=== PATIENT | female | born 1995 | race Asian ===

== ENCOUNTER 2024-03-25 09:31 | Observation (INO) ==
--- NOTE | 2023-05-29 08:29 | Anesthesiology Consultation ---
Date of Service May 29, 2023 Assessment & Plan (1) Encounter for pre-operative examination: Chart Review Chart Review: Pending: Refer to Additional Notes / Consult section (pending surgeon ordered PCP clearance ) and Patient NOT seen in Pre Admission Testing - Awaiting PCP clearance per surgeon request (05/29/23 workload note) Patient uses he/him/his pronouns - Check test AM DOS -Infectious Disease screening: Per PAT nursing assessment on 05/22/23. No known infectious disease contacts in past 10 days or current infectious disease symptoms. No recent travel outside the country. BP [facility] Nurse Visit 05/29/23= BP 118/90 History Surgery Operation Date: 06/05/23 10:50 Proposed Procedures p Bilateral Mastectomy with Free Nipple Grafting and Suction Assisted Lipectomy of the Lateral Chest - Dianna River MD Height/Weight Height: 4 ft 9 in Weight: 63.503 kg Allergies Allergy/AdvReac Type Severity Reaction Status Date / Time No Known Allergies Allergy Verified 09/29/22 13:41 Medications Home Medications Medication Instructions Recorded Confirmed Last Taken testosterone cypionate 200 mg/mL 200 mg subcut Q7D 09/29/22 05/22/23 Unknown intramuscular oil rosuvastatin 20 mg tablet 20 mg PO QAM 05/22/23 05/22/23 Unknown cephalexin 500 mg capsule 500 mg PO TID 1 week #21 caps 05/24/23 05/24/23 Unknown oxycodone-acetaminophen 5 mg-325 1 tab PO Q4H PRN pain #18 tabs 05/24/23 05/24/23 Unknown mg tablet (Endocet) Past Medical History Medical History (Updated 05/29/23 @ 09:21 by Kassandra Courtney PA-C) Dyslipidemia Gender dysphoria in adult Hypertension BP elevated at surgeon visit 05/23/23- requesting PCP approval prior to surgery Past Family History Family History Other Alzheimer disease Diabetes Dyslipidemia Hypertension No family history of adverse response to anesthesia Past Surgical History Surgical History Hx of tooth extraction Social History Smoking Status: Never smoker Do You Dip or Chew Tobacco: No Hx Alcohol Use: Yes (once per month) alcohol intake frequency: other Hx Substance Use: No substance use type: does not use Lab Results Anesthesia Preop Results Results Anesthesia Widget: WBC 6.85 K/ul (4.8-10.8) 05/27/23 Hgb 18.3 g/dl (12.0-16.0) H 05/27/23 Hct 50.7 % (37.0-47.0) H 05/27/23 Plt 199 K/uL (130-400) 05/27/23 Na 137 mmol/L (136-145) 05/27/23 K 4.3 mmol/L (3.5-5.1) 05/27/23 Cl 102 mmol/L (98-107) 05/27/23 CO2 31 mmol/L (21-32) 05/27/23 BUN 17 mg/dl (6-23) 05/27/23 Creat 0.91 mg/dl (0.6-1.2) 05/27/23 Glucose Level 102 mg/dl (70-99(Fasting)) H 05/27/23 PT 10.1 Seconds (9.0-12.0) 05/27/23 INR 0.9 (0.9-1.1) 05/27/23 Testing Laboratory Results Polycythemia - chronic since at least 2022 (Hgb 17.6 and Hct 50.2 on 05/2022 labs) Electrocardiogram Date: 05/27/23 Findings: + NSR @ (85bpm) Incomplete RBBB
--- NOTE | 2023-11-21 09:54 | Anesthesiology Consultation ---
Date of Service November 21, 2023 Assessment & Plan (1) Encounter for pre-operative examination: Chart Review Chart Review: Acceptable Risk for Surgery and Patient NOT seen in Pre Admission Testing Patient uses he/him/his pronouns - Check test AM DOS -Infectious Disease screening: Per PAT nursing assessment on 11/21/23. No known infectious disease contacts in past 10 days or current infectious disease symptoms. No recent travel outside the country. Per PCP letter 08/01/23= "Lam Ly is cleared for surgery. BP was 122/74 on 07/18/23 and 138/88 on 08/01/23." History Surgery Operation Date: 06/05/23 10:50 Proposed Procedures p Bilateral Mastectomy with Free Nipple Grafting and Suction Assisted Lipectomy of the Lateral Chest - Dianna River MD Operation Date: 11/29/23 07:30 Proposed Procedures p Bilateral Mastectomy with Free Nipple Grafting and Suction Assisted Lipectomy of Chest - Dianna River MD Height/Weight Height: 4 ft 9 in Weight: 68.039 kg Allergies Allergy/AdvReac Type Severity Reaction Status Date / Time No Known Allergies Allergy Verified 11/21/23 08:32 Medications Home Medications Medication Instructions Recorded Confirmed Last Taken testosterone cypionate 200 mg/mL 200 mg subcut Q7D 09/29/22 11/21/23 Unknown intramuscular oil rosuvastatin 20 mg tablet 20 mg PO QAM 05/22/23 11/21/23 Unknown cephalexin 500 mg capsule 500 mg PO TID 1 week #21 caps 05/24/23 11/21/23 Unknown oxycodone-acetaminophen 5 mg-325 1 tab PO Q4H PRN pain #18 tabs 05/24/23 11/21/23 Unknown mg tablet (Endocet) Past Medical History Medical History (Updated 11/21/23 @ 09:53 by Kassandra Courtney PA-C) Dyslipidemia Gender dysphoria in adult History of hypertension pt. reports "white coat" seen by Dr Verdin (PCP) 07/2023 - BP stable History of prediabetes Per PCP records- A1C now WNL (5.6) Past Family History Family History Other Alzheimer disease Diabetes Dyslipidemia Hypertension No family history of adverse response to anesthesia Past Surgical History Surgical History Hx of tooth extraction Social History Smoking Status: Never smoker Do You Dip or Chew Tobacco: No Hx Alcohol Use: Yes alcohol intake frequency: a few times a week Hx Substance Use: No substance use type: does not use Lab Results Anesthesia Preop Results Results Anesthesia Widget: WBC 6.90 K/ul (4.8-10.8) 11/08/23 Hgb 18.0 g/dl (12.0-16.0) H 11/08/23 Hct 51.5 % (37.0-47.0) H 11/08/23 Plt 202 K/uL (130-400) 11/08/23 Na 136 mmol/L (136-145) 11/08/23 K 3.9 mmol/L (3.5-5.1) 11/08/23 Cl 99 mmol/L (98-107) 11/08/23 CO2 30 mmol/L (21-32) 11/08/23 BUN 20 mg/dl (6-23) 11/08/23 Creat 0.91 mg/dl (0.6-1.2) 11/08/23 Glucose Level 88 mg/dl (70-99(Fasting)) 11/08/23 PT 10.1 Seconds (9.0-12.0) 11/08/23 INR 0.9 (0.9-1.1) 11/08/23 Testing Laboratory Results Polycythemia - chronic/stable from previous Electrocardiogram Date: 05/27/23 Findings: + NSR @ (85bpm) Incomplete RBBB
--- NOTE | 2024-03-13 10:16 | Anesthesiology Consultation ---
Date of Service March 13, 2024 Assessment & Plan (1) Encounter for pre-operative examination: Chart Review Chart Review: Acceptable Risk for Surgery (pending anesthesia evaluation DOS ) and Patient NOT seen in Pre Admission Testing Patient uses he/him/his pronouns - Check test AM DOS Per surgeon office visit 03/04/24 in re: to HTN= BP continues to run high in office. Patient states home BPs and BPs at previous PCP office visits improved/WNL. Surgeon's PA-C did warn patient he may be cancelled DOS if BP too high preoperatively- patient voices understanding. -Infectious Disease screening: Per PAT nursing assessment on 03/13/24. No known infectious disease contacts in past 10 days or current infectious disease symptoms. No recent travel outside the country. Per PCP letter 08/01/23= "Lam Ly is cleared for surgery. BP was 122/74 on 07/18/23 and 138/88 on 08/01/23." History Surgery Operation Date: 06/05/23 10:50 Proposed Procedures p Bilateral Mastectomy with Free Nipple Grafting and Suction Assisted Lipectomy of the Lateral Chest - Dianna River MD Operation Date: 03/25/24 11:30 Proposed Procedures p Bilateral Mastectomy with Free Nipple Grafting and Suction Assisted Lipectomy of Chest - Dianna River MD Height/Weight Height: 4 ft 9 in Weight: 68.039 kg Allergies Allergy/AdvReac Type Severity Reaction Status Date / Time No Known Allergies Allergy Verified 03/13/24 09:42 Medications Home Medications Medication Instructions Recorded Confirmed Last Taken testosterone cypionate 200 mg/mL 200 mg subcut Q7D 09/29/22 03/13/24 Unknown intramuscular oil rosuvastatin 20 mg tablet 20 mg PO QAM 05/22/23 03/13/24 Unknown cephalexin 500 mg capsule 500 mg PO TID 1 week #21 caps 05/24/23 03/13/24 Unknown oxycodone-acetaminophen 5 mg-325 1 tab PO Q4H PRN pain #18 tabs 05/24/23 03/13/24 Unknown mg tablet (Endocet) oxycodone-acetaminophen 5 mg-325 1 tab PO Q4H PRN pain #14 tabs 03/04/24 03/04/24 Unknown mg tablet (Endocet) Past Medical History Medical History Dyslipidemia Gender dysphoria in adult History of hypertension pt. reports "white coat" seen by Dr Verdin (PCP) 07/2023 - BP stable History of prediabetes Per PCP records- A1C now WNL (5.6) Past Family History Family History Other Alzheimer disease Diabetes Dyslipidemia Hypertension No family history of adverse response to anesthesia Past Surgical History Surgical History Hx of tooth extraction Social History Smoking Status: Never smoker Do You Dip or Chew Tobacco: No Hx Alcohol Use: Yes alcohol intake frequency: a few times a week Hx Substance Use: No substance use type: does not use Lab Results Anesthesia Preop Results Results Anesthesia Widget: WBC 7.27 K/ul (4.8-10.8) 03/04/24 Hgb 17.5 g/dl (12.0-16.0) H 03/04/24 Hct 47.8 % (37.0-47.0) H 03/04/24 Plt 203 K/uL (130-400) 03/04/24 Na 138 mmol/L (136-145) 03/04/24 K 3.8 mmol/L (3.5-5.1) 03/04/24 Cl 103 mmol/L (98-107) 03/04/24 CO2 29 mmol/L (21-32) 03/04/24 BUN 14 mg/dl (6-23) 03/04/24 Creat 0.93 mg/dl (0.6-1.2) 03/04/24 Glucose Level 114 mg/dl (70-99(Fasting)) H 03/04/24 PT 10.2 Seconds (9.0-12.0) 03/04/24 INR 0.9 (0.9-1.1) 03/04/24 Testing Laboratory Results Polycythemia - chronic/stable from previous Electrocardiogram Date: 05/27/23 Findings: + NSR @ (85bpm) Incomplete RBBB
[~2024-03-25 09:31] MED LIST: LR 15ML/HR IV SCH; TRANEXAMIC ACID / 0.7% NACL 1,000 MG/100 ML BAG IV SCH; ceFAZolin 2000MG 2,000 MG/15 ML SYR IV SCH
[2024-03-25] MEDS ORDERED: LIDOCAINE 2% 2 ML VIAL/AMP(20MG/ML) INFIL ONE ×2 (10:03)
[2024-03-25] MEDS ORDERED: PROPOFOL IV EMULSION 10 MG/ML 20 ML VIAL IV ONE (10:04)
[2024-03-25] MEDS ORDERED: ROCURONIUM BROMIDE 10 MG/ML 5 ML VIAL IV ONE (10:05)
[2024-03-25] MEDS: LR 15ML/HR IV SCH (10:24)
[2024-03-25] MEDS ORDERED: MIDAZOLAM HCL 1 MG/ML 2ML VIAL ONE (10:31)
[2024-03-25] MEDS ORDERED: fentaNYL citrate PF 100 MCG/2 ML VIAL ONE (10:31)
--- NOTE | 2024-03-25 10:36 | History & Physical Bridge Note ---
Date of Service March 25, 2024 History & Physical Bridge Note I have examined the patient, reviewed the History & Physical and in the interval since the performance of the History & Physical I have noted the following changes of clinical significance: no changes noted
[2024-03-25] MEDS ORDERED: fentaNYL citrate PF 100 MCG/2 ML VIAL IV PRN (10:57)
[2024-03-25] MEDS ORDERED: MEPERIDINE HCL 25 MG/ML CARP/VIAL IV PRN (10:57)
[2024-03-25] MEDS ORDERED: ATROPINE SULFATE 0.1 MG/ML 10ML SYR IV PRN (10:57)
[2024-03-25] MEDS ORDERED: ONDANSETRON INJ 2 MG/ML 2 ML VIAL IV PRN ×2 (10:57→16:14)
[2024-03-25] MEDS ORDERED: PROMETHAZINE HCL 6.25 MG in SODIUM CHLORIDE 0.9% 50 ML IV PRN (10:57)
[2024-03-25] MEDS: ceFAZolin 2000MG 2,000 MG/15 ML SYR IV SCH ×2 (11:15→18:10)
[2024-03-25] MEDS: TRANEXAMIC ACID 1,000 MG **IV Pre-op IV SCH (11:15)
[2024-03-25] MEDS ORDERED: LABETALOL HCL IV 5 MG/ML 20ML IV ONE (11:37)
[2024-03-25] MEDS ORDERED: ONDANSETRON INJ 2 MG/ML 2 ML VIAL ONE (11:37)
[2024-03-25] MEDS ORDERED: HYDROmorphone INJ 1 MG/ML SYRINGE ONE ×2 (11:44→12:51)
[2024-03-25] MEDS ORDERED: KETAMINE HCL 10MG/ML SYR ONE (11:44)
[2024-03-25] MEDS: BUPIVACAINE 0.25% PF 30 ML VIAL ONE (12:22)
[2024-03-25] MEDS: LIDOCAINE 1%/EPINEPHRINE 1:100,000 50 ML VIAL ONE (12:22)
[2024-03-25] MEDS ORDERED: PHENYLEPHRINE HCL 10 MG/ML VIAL ONE (12:41)
[2024-03-25] MEDS: TRANEXAMIC ACID 1,000 MG **IV Intra-op IV SCH (13:44)
[2024-03-25] MEDS ORDERED: SUGAMMADEX SODIUM 200 MG/2 ML VIAL IV ONE (14:13)
--- NOTE | 2024-03-25 14:27 | Post Operative Brief Note ---
PG Immediate Post Op with CF Date of Surgery March 25, 2024 Pre & Post Diagnosis Operation Date: 03/25/24 11:30 Pre-Op Diagnosis: Gender Affirming Surgery Post-Op Diagnosis: Gender Affirming Surgery I identified the patient and participated in the time-out.: Yes Procedure Operation Date: 03/25/24 11:30 Actual Procedures p Bilateral Non-Cancerous Mastectomy with Free Nipple Grafting(Bilateral) - Dianna River MD Surgeon Dianna River MD Tear Down Matcher Radha Gasca PA-C Estimated Blood Loss 25 Findings Consistent with Post-Op Diagnosis Specimens Specimen Description: A:Left Breast Tissue B: Right Breast Tissue Drains Benjamín-Roberson Drain
--- NOTE | 2024-03-25 14:32 | Operative Report ---
PG Post Operative Report Pre & Post Diagnosis Operation Date: 03/25/24 11:30 Pre-Op Diagnosis: Gender Affirming Surgery Post-Op Diagnosis: Gender Affirming Surgery I identified the patient and participated in the time-out.: Yes Procedure Operation Date: 03/25/24 11:30 Actual Procedures p Bilateral Non-Cancerous Mastectomy with Free Nipple Grafting(Bilateral) - Dianna River MD Surgeon Dianna River MD Speech Language Pathologist Travel Radha Gasca PA-C Estimated Blood Loss 25 Findings Consistent with Post-Op Diagnosis Specimens bilateral breast tissue to pathology Drains [id number] Anesthesia Type General Complications none Indications gender dysphoria Description of Procedure The risks benefits and alternatives of the procedure were explained to the patient, who agreed and signed consent. He was identified and marked in the preoperative holding area. I marked the incisions about 1 cm superior to the inframammary folds and marked the superior incision in an elliptical fashion in order to provide a horizontal scar pattern if possible. Nipple site was confirmed with the patient. He was brought to the operating room where he was placed under general anesthesia in supine position without incident. Surgical site was prepped and draped sterilely. A time out procedure was performed. 1% lidocaine with epinephrine was used to anesthetize the planned incisions. Nipple areolar complex grafts were harvested. I elected to use a 28 mm cookie cutter to size the nipple areolar complex. It was harvested using a 15 blade scalpel and was defatted using a curved iris scissor. They were placed on the back table in a saline soaked sponge until I was ready to place the grafts. I began by making the inferior incision using 15 blade scalpel. Incision was deepened through dermis using electrocautery, and deepened down to the chest wall. I began raising the breast off of underlying pectoralis fascia until I could confirm that the wound could be closed without tension. I then confirmed m arking of the superior incision, which was made with a 15 blade scalpel and deepened using electrocautery. The breast was passed off as specimen. Superiorly, breast was undermined to the clavicle and the superior flap was further thinned until it was of uniform thickness, approximately 2 cm in thickness and just slightly thicker than the thickness of the abdominal subcutaneous tissue. Throughout dissection, hemostasis was achieved using the bovie. I did perform some additional undermining inferiorly along the inframammary fold to facilitate closure and disrupt the inframammary fold. Prior to closure, the wound was irrigated, examined for hemostasis. A 15 Tamazight Andrae drain was placed in the wound bed and brought out through a separate stab incision laterally.Deep dermis was closed using 2-0 Vicryl interrupted sutures, superficial dermis closed using 2-0 PDO running Quill suture, and subcuticular wound closure was performed using 3-0 Monocryl. Following closure, the nipple areolar complex was inset. I made a circular incision at the lateral border of pectoralis and just superior to the incision. This was de-epithelialized. The nipple areolar graft was inset first using 5-0 plain gut suture. An identical procedure was performed on the right side. The graft was inset using 5-0 fast absorbing suture. 6 4-0 silk tie over bolster sutures were placed, and a Xeroform and cotton bolster was placed. Sylke was applied to the incisions. Dry dressings and drain sponges were placed. A binder was placed. Procedure was tolerated well. Patient was awakened and transferred to the recovery room in satisfactory condition. Radha Gasca PA-C was present and scrubbed throughout the entire procedure. She assisted in retraction, hemostasis, and simultaneous wound closure. I attest to the content of the Intraoperative Record and any orders documented therein. Any exceptions are noted below.
[2024-03-25] MEDS: LABETALOL HCL IV 5 MG/ML 20ML IV PRN (15:03)
[2024-03-25] MEDS: hydrALAZINE HCL 20 MG/ML VIAL IV STA (15:27)
[2024-03-25] MEDS ORDERED: MoRPHine SULFATE 4 MG/ML 1 ML CARP\\VIAL IV PRN (16:14)
[2024-03-25] MEDS ORDERED: ACETAMINOPHEN 325 MG TAB PO PRN (16:14)
[2024-03-25] MEDS ORDERED: LORazepam 0.5 MG TAB PO PRN (16:14)
[2024-03-25] MEDS ORDERED: PROMETHAZINE 12.5 MG/50.5 ML BAG IV PRN (16:14)
[2024-03-25] MEDS ORDERED: diphenhydrAMINE Capsule 25 MG CAP PO PRN (16:14)
[2024-03-25] MEDS ORDERED: diphenhydrAMINE 50 MG/ML VIAL IV PRN (16:14)
[2024-03-25] MEDS ORDERED: MoRPHine SULFATE 2 MG/ML CARP IV PRN (16:14)
[2024-03-25] MEDS ORDERED: oxyCODONE/ACETAMINOPHEN 5mg/325mg TAB PO PRN ×2 (16:14)
[2024-03-25] MEDS: hydrALAZINE HCL 20 MG/ML VIAL ONE (16:28)
--- NOTE | 2024-03-25 16:42 | Anesthesiology Progress Note ---
Date of Service March 25, 2024 Anesthesia Post Procedure Vital Signs Vital Signs: Temp Pulse Pulse Pulse Resp BP BP 03/25/24 16:32 36.7 C 90 17 174/106 H 03/25/24 16:20 03/25/24 16:14 36.6 C 80 16 160/94 H 03/25/24 15:55 36.7 C 75 24 162/107 H 03/25/24 15:45 81 25 H 162/106 H 03/25/24 15:35 73 25 H 166/105 H 03/25/24 15:25 64 16 178/113 H 03/25/24 15:17 72 184/115 H 03/25/24 15:15 68 21 184/115 H 03/25/24 15:10 67 187/114 H 03/25/24 15:05 62 21 182/112 H 03/25/24 15:03 73 179/108 H 03/25/24 14:55 67 25 H 160/111 H 03/25/24 14:45 65 28 H 166/89 H 03/25/24 14:35 36.0 C L 64 19 151/96 H 03/25/24 10:14 03/25/24 09:57 36.8 C 92 H 16 161/97 H BP Pulse Ox O2 Del Method O2 Flow Rate 03/25/24 16:32 94 Room Air 03/25/24 16:20 Room Air 03/25/24 16:14 95 Room Air 03/25/24 15:55 96 Room Air 03/25/24 15:45 95 Room Air 03/25/24 15:35 96 Room Air 03/25/24 15:25 93 Room Air 03/25/24 15:17 03/25/24 15:15 93 Room Air 03/25/24 15:10 03/25/24 15:05 94 Room Air 03/25/24 15:03 03/25/24 14:55 98 Oxymask 4 03/25/24 14:45 99 Oxymask 4 03/25/24 14:35 100 Oxymask 4 03/25/24 10:14 155/96 H 03/25/24 09:57 97 Room Air Transfer of Care Handoff Completed per policy Notes Mental Status: alert / awake / arousable and participated in evaluation Patient Amnestic to Procedure: Yes Nausea / Vomiting: adequately controlled Pain: adequately controlled Airway Patency, RR, SpO2: stable & adequate BP & HR: see Notes below Hydration State: stable & adequate Anesthetic Complications: no major complications apparent and Pt Satisfied with anesthetic care Notes: Being treated for HTN.
[2024-03-26 02:44] VITALS: PULSE 90; RESP 16
--- NOTE | 2024-03-26 07:28 | Surgery Progress Note ---
Date of Service March 26, 2024 Assessment & Plan (1) Gender dysphoria in adult: Plan: Lam is doing well. D/C home today. Post-op instructions reviewed. Admission and Anticipated Discharge Date Admission Date: March 25, 2024 Subjective Lam is resting comfortably in bed. Pain is controlled. BP remained stable overnight. Physical Exam Physical Exam: drains with scant bloody and serous output. bolsters intact. incision CDI with sylke dressing. in place. no concern for hematoma Results & Data Vital Signs (Past 12 Hours) Vital Signs Temp Pulse Resp BP Pulse Ox O2 Del Method 03/26/24 02:42 36.8 C 90 16 148/79 H 99 Room Air 03/25/24 23:04 36.5 C 96 H 18 122/82 97 Room Air PG Care Time/CCT Total # of Minutes Spent Total Time Spent with Patient: Total time spent is greater than 50% in coordination of care (as documented) at patient's floor/unit and/or counseling patient: Coding Level of Care Code 60548 Post Operative Follow-Up Diagnoses Gender dysphoria in adult F64.0
[2024-03-26 07:29] VITALS: BP 133/77; TEMP 98.1; O2SAT 98
[2024-03-26] MEDS: ROSUVASTATIN CALCIUM 20 MG TAB PO SCH (08:16)
[2024-03-26] MEDS: MULTIVITAMIN TAB PO SCH (08:16)
--- NOTE | 2024-03-26 15:07 | Discharge Summary ---
Date of Service March 26, 2024 Admission HPI Per Admitting Provider See admission H&P. History of gender dysphoria Admission Exam Per Admitting Provider see admission H&P. Principal Diagnosis gender dysphoria Discharge Exam drains with scant bloody and serous output. bolsters intact. incision CDI with sylke dressing. in place. no concern for hematoma Discharge Data Allergies Allergy/AdvReac Type Severity Reaction Status Date / Time No Known Allergies Allergy Verified 03/25/24 09:55 Procedures Performed Operation Date: 03/25/24 11:30 Actual Procedures p Bilateral Non-Cancerous Mastectomy with Free Nipple Grafting(Bilateral) - Dianna River MD Ordered Studies 03/25/24 05:00 US - OR guided needle placemen Routine Hospital Course (1) Gender dysphoria in adult: Patient presented to [facility] with history of gender dysphoria. He was taken to the OR and underwent bilateral non-cancerous mastectomy with free nipple grafts. There were no intraoperative complications. He was taken to recovery and transferred to med/surg for observation. On POD#1, he was feeling well. He was tolerating a regular diet and ambulating. On exam, his vitals were stable. His incisions were CDI and NAC bolsters intact. His drains had serosang output. he was discharged home with instructions to follow-up in the office in 1 week. Total Time Total Time Spent Total Time Spent (In Minutes): 15 Total Time Includes: Examination of the Patient and Communication With Other Providers Discharge Plan Discharge Items Patient Disposition: Home - Self-Care Reason For Visit: Gender Affirming Surgery Discharge Diagnosis: s/p non-cancerous mastectomy Activity: As commented below Non-emergency contact: Surgeon Call non-emergency contact if: you have any medication questions, your pain is not controlled, you have a fever, your wound has increased redness and your wound has increased drainage Follow-up/Referrals: Radha Gasca PA-C [Physician Biochemical Development Engineer] - Jose Babb MD [Primary Care Provider] - Diet: Regular Addtl Attending Provider Instructions: ACTIVITY RECOMMENDATIONS: __Normal activities _x_No bending, lifting or straining. Keep arms at shoulder height or below __No driving __Driving allowed when you are off pain medications _x_Walking permitted __You should have help at home for ___ days __You may return to previous diet. DRESSINGS: __No dressings required _x_Keep dressings dry/in place until first office visit- do not get nipple bolsters wet . Binder must stay on __Remove dressings ___ and leave dressings off __Apply ice ___ days __Remove dressings and reapply garment __Apply antibiotic ointment (Bacitracin, Neosporin, etc) to wounds 3-4 times/day for 10 days BATHING: _x_Keep dressings dry _x_Sponge bathing permitted away from surgical dressings __Showering permitted _x_No swimming, hot tubs or soaking in a tub MEDICATIONS: Resume previous medications unless instructed otherwise by your surgeon. _x_Do not use aspirin, Motrin, Advil or Ibuprofen as these may promote bleeding. Please use Tylenol. _x_Prescription(s) provided: pain medication and antibiotics were provided at your last office visit- begin antibiotics today OTHER INSTRUCTIONS: _x_Record drain output 2-3 times per day SPECIAL CARE INSTRUCTIONS: * It is normal to have a mild fever after surgery. If your temperature is higher than 101.5 degrees F, please call the office at [phone]. * Constipation is a typical side effect of pain medication. An [id number] stool softener will help relieve this. * Leaking around surgical drains may occur and should not cause concern. Sometimes these drains become clogged. If this happens, remove the bulb and milk the clot out of the tube, then replace the bulb. * Drainage from wounds after liposuction is normal and should be expected. Garments will become soiled. You should protect furniture and bedding. This drainage should mostly subside within 2-3 days. Leave garments in place unless instructed to remove them. * If you have unusual drainage from a wound or are concerned you have an infection or have any questions or concerns, please call the office at [phone]. FOLLOW UP VISIT: If not already scheduled, please call the office, , when you return home after surgery to schedule an appointment to be seen in _6__ days. Pending Studies at Discharge: Yes Stand-Alone Forms: [facility] Smoking Cessation Medications and DC Order Prescriptions: Continued testosterone cypionate 200 mg/mL oil 200 mg subcut Q7D oxycodone-acetaminophen [Endocet] 5-325 mg tablet 1 tab PO Q4H PRN (Reason: pain) Qty: 14 0RF Rx Instructions: Dr. River [id number] cephalexin 500 mg capsule 500 mg PO TID 7 Days Qty: 21 0RF oxycodone-acetaminophen [Endocet] 5-325 mg tablet 1 tab PO Q4H PRN (Reason: pain) Qty: 18 0RF Rx Instructions: initial therapy Dr. River [id number] rosuvastatin 20 mg Tablet 20 mg PO QAM Discharge Orders: Discharge Order (Routine); Ordered 03/26/24 Ordered By: Radha Gasca Admission Data Admit Date/Time: 03/25/24 14:39 Attending Provider: Dianna River Admit Provider: Dianna River Primary Care Provider: Jose Babb Other Interventions: Discharge Summary Assessment (RN) Last Done: 03/26/24 10:00 Coding Level of Care Code 86432 OBS Care - Discharge Diagnoses Gender dysphoria in adult F64.0
== END 2024-03-26 11:46 | disposition home or self-care (01) ==
LOC: 3E 09:31 → ASU 09:31